=== PATIENT | male | born 1995 | race Hispanic/Latino ===

== ENCOUNTER 2019-02-01 10:46 | Day surgery (SDC) | payer SELFPAY ==
[2019-02-01] MEDS ORDERED: Ondansetron PF 4 MG/2 ML Vial ONE (11:37)
[2019-02-01] MEDS ORDERED: Morphine 4 MG/ML VIAL ONE (11:37)
--- NOTE | 2019-02-01 13:38 | CT ---
CT ABDOMEN AND PELVIS WITH CONTRAST: 02/01/19 HISTORY: Abdominal pain. COMPARISON: None. FINDINGS: Lung bases are clear. No pericardial effusion. There is acute appendicitis with an inflamed and enlar ged appendix which is retrocecal with craniad extension. There is multiple foci of hypoenhancement of the mucosa. Extensive periappendiceal inflammation. The liver, gallbladder, pancreas, adrenal glands , spleen are all normal. No retroperitoneal or periaortic adenopathy. Kidneys are unremarkable. No acute osseous abnormality. There is no evidence of macroperforation. No appendicolith. IMPRESSION: Acute appendicitis. The appendix is retrocecal with craniad extension. No evidence for macroperforati on or appendicolith. No evidence for abscess. POS: [facility]
[2019-02-01 13:53] LABS: #Lymphocytes 2.5 thou/uL (1.20-3.40); #Monocytes 1.2 thou/uL (0.11-0.59); #Neutrophils 9.6 thou/uL (1.40-6.50); %Basophils 0.2 % (0.0-1.0); %Eosinophils 0.3 % (0.0-10.0); %Lymphocytes 18.9 % (21.0-51.0); %Monocytes 8.9 % (0.0-10.0); %Neutrophils 71.7 % (42.0-75.0); Hemoglobin 14.5 g/dL (14.0-18.0); Mean Corpuscular HGB CONC 35.3 g/dL (32.0-36.0); Mean Corpuscular Hemoglobin 31.3 pg (27.0-31.0); Mean Corpuscular Volume 88.7 fL (78.0-98.0); Mean Platelet Volume 7.1 fL (7.4-10.4); Platelet Count 246 thou/uL (130-400); RBC Distribution Width 11.1 % (11.5-14.5); Red Blood Cell (RBC) Count 4.62 mill/uL (4.70-6.10); White Blood Cell (WBC) Count 13.3 thou/uL (4.8-10.8)
[2019-02-01 14:12] LABS: ALT (SGPT) 11 U/L (8-55); AST (SGOT) 12 U/L (5-34); Albumin 4.6 g/dL (3.5-5.0); Alkaline Phosphatase 100 U/L (40-150); Anion Gap 15 mmol/L (10-20); BUN (Urea Nitrogen) 9 mg/dL (8.9-20.6); Bilirubin, Total 0.6 mg/dL (0.2-1.2); Calc. Creatinine Clearance 0 mL/min (70-130); Calcium 9.5 mg/dL (7.8-10.44); Carbon Dioxide 27 mmol/L (22-29); Chloride 99 mmol/L (98-107); Estimated GFR-MDRD Greater than 90; Globulin 3.1 g/dL (2.4-3.5); Glucose 89 mg/dL (70-105); Potassium 3.6 mmol/L (3.5-5.1); Protein, Total 7.7 g/dL (6.0-8.3); Sodium 137 mmol/L (136-145)
[2019-02-01] MEDS ORDERED: Piperacillin/Tazobactam 4.5 GM in Sodium Chloride 0.9% 100 ML IVPB SCH ×2 (14:15→19:00)
--- NOTE | 2019-02-01 16:03 | HP ---
HISTORY OF PRESENT ILLNESS: Mr. Schafer is a 23-year-old man, who presented to the emergency department with a 36-hour history of what started as a periumbilical abdominal pain, which has since in the right lower quadrant. Pain is described as sharp, rated at 9/10, and associated with multiple episodes of nausea and nonbilious emesis. The patient denies any fevers or chills. He denies any abdominal bloating, diarrhea, or distention. He denies any urinary frequency, urgency, or dysuria. PAST MEDICAL HISTORY: Denies any previous medical problems. PAST SURGICAL HISTORY: None. PREHOSPITALIZATION MEDICATIONS: None. ALLERGIES: TO SULFA DRUGS. SOCIAL HISTORY: The patient is , lives at home with his . He denies any cigarette smoking, ethanol, or illicit drug abuse. 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 REVIEW OF SYSTEMS: A 10-point review of systems is essentially unremarkable except as stated in past medical history and chief complaint. PHYSICAL EXAMINATION: GENERAL: This reveals a 23-year-old normally developed man, who is otherwise coherent, interactive, and appears stated age. The patient is alert and oriented x3. He appears to be in moderate acute distress secondary to right lower quadrant abdominal pain. VITAL SIGNS: Today include blood pressure 125/73, pulse is 85, respiratory rate is 18, temperature 98.9 degrees Fahrenheit, oxygen saturation 98% on room air. HEENT: Reveals normocephalic and atraumatic. Pupils are equal, round, reactive to light and accommodation. Extraocular muscles are intact bilaterally. No scleral icterus is present. HEART: Reveals regular rate and rhythm. No murmurs or gallops auscultated. LUNGS: Clear to auscultation bilaterally. Breathing, regular and nonlabored. ABDOMEN: Soft with right lower quadrant tenderness to palpation. He has a positive Rovsing sign. Liver and spleen are nonpalpable below costal margin. EXTREMITIES: Reveal 2+ radial and pedal pulses bilaterally. He has no ankle edema present. NEUROLOGIC: Reveals no focal deficits present. LABORATORY FINDINGS: Today include a CBC with 13,300 white blood cells, hemoglobin and hematocrit 14.5 and 41.0 respectively. Platelet count is 246,000. Metabolic profile; sodium is 137, potassium is 3.6, chloride is 99, bicarb is 27, BUN is 9, creatinine is 0.93, glucose is 89. AST and ALT are 12 and 11 respectively. Alkaline phosphatase is 100. I have personally reviewed the CT scan of the abdomen and pelvis, which is remarkable for dilated appendix with periappendiceal fat stranding. There is no pneumoperitoneum or evidence of abscess. IMPRESSION: Acute appendicitis. PLAN: 1. Laparoscopic appendectomy. 2. Above findings and plan have been discussed with the patient and his at bedside. 3. Also, I informed them of the risks and benefits of the proposed surgery to include, but not limited to bleeding, infection, injury to bowel or surrounding structures. 4. The patient and his have indicated understanding of the information given. 5. I have answered their questions. 6. The patient has granted consent for this admission and surgical intervention. Job ID: [id number]
[2019-02-01] MEDS ORDERED: Acetaminophen 500 MG TAB ONE (17:28)
[2019-02-01] MEDS ORDERED: Bupivacaine 0.25% HCL 30 ML VIAL ONE (18:37)
[2019-02-01] MEDS ORDERED: Lidocaine 2% Jelly 5 ML TUBE ONE (18:50)
[2019-02-01] MEDS ORDERED: Fentanyl 100 MCG/2 ML VIAL ONE ×2 (18:50→21:09)
[2019-02-01] MEDS ORDERED: Midazolam HCl 2 mg/2 ml Vial ONE (18:50)
[2019-02-01] MEDS ORDERED: Bupivacaine/Epinephrine 0.25% 30 ML VIAL ONE (19:00)
[2019-02-01] MEDS ORDERED: HYDROcodone/Acetaminophen 5/325 mg Tablet ONE (22:14)
--- NOTE | 2019-02-01 22:58 | PDOC.OP ---
Operative Note - Operative Note Operative Note: PROCEDURE: Laparoscopic appendectomy. SURGEON: Elaine Hammonds M.D. DATE OF PROCEDURE: 02/01/2019. PREOPERATIVE DIAGNOSIS: Appendicitis. POSTOPERATIVE DIAGNOSIS: Appendicitis. HISTORY:23-year-old manwho presented with signs and symptoms concerning for appendicitis. CT scan showed evidence of acute appendicitis and the recommendation was made to proceed to the operating room for laparoscopic appendectomy. DESCRIPTION OF PROCEDURE: After informed consent was obtained and appropriate antibiotics continued, the patient was taken to the operating room and placed in the supine position and general endotracheal anesthesia was administered. The bladder was decompressed with a Babcock catheter and the abdomen was prepped and draped in the standard sterile fashion. Local anesthesia was infused to the skin and subcutaneous tissues superior to the umbilicus. A transverse skin incision was made and a Veress needle placed into the abdominal cavity and carbon dioxide gas insufflated without difficulty. Opening pressure was less than 5. Carbon dioxide gas was insufflated to an intra-abdominal pressure 15 and the patient tolerated this well. The Veress needle was withdrawn and a Kihei port advanced under direct laparoscopic vision into the abdominal cavity. Two additional ports were placed in the suprapubic and left lateral abdomen under direct laparoscopic vision after local anesthesia was infused at these sites. There were no significant adhesions. The appendix was identified and appeared inflamed but not perforated. The appendix was grasped by the mesoappendix and elevated. The mesoappendix was then sequentially ligated and divided down to the base of the appendix, which was normal in appearance and was clearly seen to be at the confluence of the tenia. Two Endoloops were placed around the base of the appendix and the appendix was divided between these Endoloops, placed into an EndoCatch bag and drawn out through the suprapubic incision. On examination of the Endoloop bagafter removal, there were 2 small slits in the outer layer of the double walled portion of the bag which appeared to be a manufacturing defect, but the inner layer appeared intact and there was no evidence of spillage. The suprapubic trocar was then replaced and the operative site was easily irrigated to clear. The suprapubic trocar was removed and the fascia closed under direct laparoscopic vision with a 0 Vicryl suture on a GraNee needle with excellent technical result. subcutaneous tissues in this area were then copiously irrigated. The left lateral trocar was then removed and hemostasis verified. Carbon dioxide gas was desufflated through the umbilical trocar which was then removed. The skin incisions were irrigated and additional local anesthesia infused at each site. The skin was closed with 4-0 subcuticular Monocryl sutures and Dermabond dressings were placed. The patient was extubated and taken to the recovery room in good condition. Estimated blood loss was minimal. There were no complications. The patient's family was informed of the defect in the Endo Catch bag and the steps taken to minimize risk of infection. They were instructed in signs and symptoms of intra-abdominal and wound infection and instructed to call if these occur. SPECIMEN: Appendix.
== END 2019-02-01 22:45 | disposition home or self-care (01) ==
LOC: ERS 10:46
PROVIDERS: ATTEND Surgery
PROC: 0DTJ4ZZ Resection of Appendix, Percutaneous Endoscopic Approach (ICD-10-PCS; principal; 2019-02-01)
DX: K35.80 Unspecified acute appendicitis (principal); Z88.2 Allergy status to sulfonamides
CPT/HCPCS: 36415; 74177; 80053; 85025; 88304; J2250; J2270; J2405; J2543; J3010; J3490; S0020